=== PATIENT | female | born 1975 | race Caucasian/White ===

== ENCOUNTER → 2024-07-13 | Outpatient (CLI) | payer OTHER, SELFPAY | END | disposition home or self-care (01) | PROVIDERS: PCP Physician Assistant; Referring Provider Physician Assistant; Visit Provider Student in an Organized Health Care Education/Training Program | DX: I87.313 Chronic venous hypertension (idiopathic) with ulcer of bilateral lower extremity (principal); R21 Rash and other nonspecific skin eruption; I10 Essential (primary) hypertension; M79.7 Fibromyalgia; E11.40 Type 2 diabetes mellitus with diabetic neuropathy, unspecified; M35.00 Sjogren syndrome, unspecified; D64.9 Anemia, unspecified | CPT/HCPCS: 99214; G0463 ==

== ENCOUNTER → 2024-07-20 | Outpatient (CLI) | payer OTHER, SELFPAY | END | disposition home or self-care (01) | LOC: SWHD 14:29 | PROVIDERS: PCP Physician Assistant; Referring Provider Physician Assistant; Visit Provider Student in an Organized Health Care Education/Training Program | DX: I87.313 Chronic venous hypertension (idiopathic) with ulcer of bilateral lower extremity (principal); R21 Rash and other nonspecific skin eruption; I10 Essential (primary) hypertension; M79.7 Fibromyalgia; E11.40 Type 2 diabetes mellitus with diabetic neuropathy, unspecified; M35.00 Sjogren syndrome, unspecified; D64.9 Anemia, unspecified | CPT/HCPCS: 99213; G0463 ==

== ENCOUNTER → 2024-11-05 | Outpatient (CLI) | payer OTHER, SELFPAY ==
[2024-11-05 10:12] LABS: Basophils # (Auto) 0.1 Thou/mm3 (0.0-0.2); Basophils % (Auto) 1 % (0-2.5); Eosinophils # (Auto) 0.6 Thou/mm3 (0.0-0.5); Eosinophils % (Auto) 8 % (0-10); Hematocrit 38.2 % (36.0-46.0); Hemoglobin 12.2 g/dL (12.0-16.0); Immature Granulocytes % (Auto) 0 % (0-0); Immature Granulocytes Auto 0.01 Thou/mm3 (0.00-0.00); Lymphocytes # (Auto) 2.4 Thou/mm3 (1.0-4.8); Lymphocytes % (Auto) 34 % (10-50); Mean Corpuscular HGB Conc 31.9 g/dl (31.0-37.0); Mean Corpuscular Hemoglobin 23.7 pg (25.0-35.0); Mean Corpuscular Volume 74 fL (80-100); Monocytes # (Auto) 0.5 Thou/mm3 (0.0-0.8); Monocytes % (Auto) 8 % (0-12); Neutrophils # (Auto) 3.4 Thou/mm3 (1.8-7.7); Neutrophils % (Auto) 49 % (37-80); Nucleated Red Blood Cell % 0 /100 WBC (0); Platelet Count 471 Thou/mm3 (140-440); RDW Standard Deviation 52.2 fL (36.4-46.3); Red Blood Count 5.14 Miln/mm3 (4.00-5.20); White Blood Count 6.9 Thou/mm3 (3.6-11.0)
[2024-11-05 10:42] LABS: Glucose Estimated Average 140 mg/dL (80-131); Hemoglobin A1C 6.5 % Hgb (4.8-6.0)
[2024-11-05 10:52] LABS: Path Review Blood Smear Sent to Pathologist
[2024-11-05 10:54] LABS: Cardiac Risk Estimate 3.8 RATIO (3.7-5.6); Cholesterol 219 mg/dL (132-200); HDL Cholesterol 58 mg/dL (40-60); LDL Cholesterol,Calculated 140 mg/dL (0-130); Triglycerides 106 mg/dL (30-150)
[2024-11-05 10:55] LABS: Ferritin 8 ng/mL (7.3-270.7); Iron 39 mcg/dL (50-170)
== END | disposition home or self-care (01) ==
LOC: COPL 08:30
PROVIDERS: PCP Family Medicine; Referring Provider Physician Assistant; Visit Provider Physician Assistant
DX: I10 Essential (primary) hypertension (principal); E78.5 Hyperlipidemia, unspecified; D50.9 Iron deficiency anemia, unspecified; D75.839 Thrombocytosis, unspecified; E11.65 Type 2 diabetes mellitus with hyperglycemia
CPT/HCPCS: 36415; 80061; 82728; 83036; 83540; 85025

== ENCOUNTER 2025-01-15 10:05 | Day surgery (SDC) | payer OTHER, SELFPAY ==
--- NOTE | 2025-01-14 10:25 | EKG_ITS ---
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
[2025-01-14 11:48] LABS: INR 0.9 (0.9-1.3); Partial Thromboplastin Time 27.1 Seconds (22.0-36.0); Prothrombin Time 10.4 Seconds (9.0-12.2)
[2025-01-14 11:55] LABS: Alanine Aminotransferase 24 U/L (10-49); Albumin, Serum 4.4 gm/dL (3.5-5.0); Albumin/Globulin Ratio 1.7 (1.2-2.2); Alkaline Phosphatase 139 U/L (46-116); Anion Gap 11 (7-16); Aspartate Amino Transferase 26 U/L (0-34); BUN/Creatinine Ratio 10 Ratio (12-20); Bilirubin,Total < 0.2 mg/dL (0.3-1.2); Blood Urea Nitrogen 7 mg/dL (9-23); Calcium 9.2 mg/dL (8.3-10.6); Calcium (Corrected) 9.2 mg/dL (8.5-10.1); Carbon Dioxide 24.9 mMol/L (20.0-31.0); Chloride 101 mMol/L (98-107); Creatinine (Component) 0.7 mg/dL (0.6-1.3); Globulin 2.6 gm/dL (2.3-3.5); Glucose 129 mg/dL (74-106); Osmolality,Calculated 273 (275-295); Potassium 4.2 mMol/L (3.4-5.1); Sodium 137 mMol/L (136-145); eGFR > 60 See Note
[2025-01-14 15:17] VITALS: BMI 28.8
[2025-01-15 10:30] VITALS: BP 165/113; PULSE 95; RESP 20; TEMP 36.3; O2SAT 94; BMI 29.7
[2025-01-15] MEDS: RINGERS LACTATED 500 ML 500 ML 20 ML IV (10:39)
[2025-01-15 11:12] VITALS: BP 147/99; PULSE 87; RESP 20; O2SAT 94
[2025-01-15 12:12] VITALS: BP 141/93; PULSE 97; RESP 24; TEMP 36.1; O2SAT 98
[2025-01-15 12:22] VITALS: BP 138/95; PULSE 80; RESP 18; O2SAT 96
[2025-01-15 12:32] VITALS: BP 158/105; PULSE 87; RESP 19; O2SAT 96
[2025-01-15 12:42] VITALS: BP 146/106; PULSE 82; RESP 16; O2SAT 97
== END 2025-01-15 13:07 | disposition home or self-care (01) ==
PROVIDERS: Anesthesiology; PCP Physician Assistant; Referring Provider Specialist; Visit Provider Specialist
PROC: 0DBE8ZX Excision of Large Intestine, Via Natural or Artificial Opening Endoscopic, Diagnostic (ICD-10-PCS; CPT 45380; principal; 2025-01-15 10:15)
PROC: (CPT 43239; 2025-01-15 10:15)
DX: K64.2 Third degree hemorrhoids (principal); D50.9 Iron deficiency anemia, unspecified; K57.30 Diverticulosis of large intestine without perforation or abscess without bleeding
CPT/HCPCS: 46221; 45378; 36415; 80053; 81025; 85610; 85730; 93005; A4649; C1726; J7120

== ENCOUNTER → 2025-01-22 | Outpatient (CLI) | payer OTHER, SELFPAY ==
[2025-01-22 10:18] LABS: Basophils # (Auto) 0.1 Thou/mm3 (0.0-0.2); Basophils % (Auto) 1 % (0-2.5); Eosinophils # (Auto) 0.4 Thou/mm3 (0.0-0.5); Eosinophils % (Auto) 6 % (0-10); Hematocrit 36.5 % (36.0-46.0); Hemoglobin 12.4 g/dL (12.0-16.0); Immature Granulocytes % (Auto) 0 % (0-0); Immature Granulocytes Auto 0.01 Thou/mm3 (0.00-0.00); Lymphocytes % (Auto) 27 % (10-50); Mean Corpuscular Hemoglobin 25.7 pg (25.0-35.0); Mean Corpuscular Volume 76 fL (80-100); Monocytes # (Auto) 0.6 Thou/mm3 (0.0-0.8); Monocytes % (Auto) 9 % (0-12); Neutrophils # (Auto) 4.2 Thou/mm3 (1.8-7.7); Neutrophils % (Auto) 57 % (37-80); Nucleated Red Blood Cell % 0 /100 WBC (0); Platelet Count 421 Thou/mm3 (140-440); RDW Standard Deviation 47.3 fL (36.4-46.3); Red Blood Count 4.83 Miln/mm3 (4.00-5.20); White Blood Count 7.3 Thou/mm3 (3.6-11.0)
[2025-01-22 10:29] LABS: Glucose Estimated Average 154 mg/dL (80-131)
[2025-01-22 10:32] LABS: Alanine Aminotransferase 16 U/L (10-49); Albumin, Serum 4.6 gm/dL (3.5-5.0); Albumin/Globulin Ratio 1.9 (1.2-2.2); Alkaline Phosphatase 138 U/L (46-116); Anion Gap 9 (7-16); Aspartate Amino Transferase 24 U/L (0-34); BUN/Creatinine Ratio 10 Ratio (12-20); Bilirubin,Total 0.3 mg/dL (0.3-1.2); Blood Urea Nitrogen 7 mg/dL (9-23); Calcium 9.6 mg/dL (8.3-10.6); Calcium (Corrected) 9.6 mg/dL (8.5-10.1); Carbon Dioxide 28.1 mMol/L (20.0-31.0); Cardiac Risk Estimate 4.3 RATIO (3.7-5.6); Chloride 98 mMol/L (98-107); Cholesterol 234 mg/dL (132-200); Creatinine (Component) 0.7 mg/dL (0.6-1.3); Globulin 2.4 gm/dL (2.3-3.5); Glucose 135 mg/dL (74-106); HDL Cholesterol 55 mg/dL (40-60); LDL Cholesterol,Calculated 145 mg/dL (0-130); Magnesium 1.8 mg/dL (1.6-2.6); Osmolality,Calculated 270 (275-295); Potassium 4.4 mMol/L (3.4-5.1); Sodium 135 mMol/L (136-145); Triglycerides 168 mg/dL (30-150); eGFR > 60 See Note
[2025-01-22 10:47] LABS: Ferritin 15 ng/mL (7.3-270.7); Iron 48 mcg/dL (50-170)
[2025-01-22 10:48] LABS: Vitamin B12 502 pg/mL (211-911); Vitamin D 25 Hydroxy Total 23.8 ng/mL (7.3-40.2)
[2025-01-27 07:19] LABS: Vitamin B6, Plasma* 5.2 ng/mL (2.1-21.7)
== END | disposition home or self-care (01) ==
LOC: COPL 09:12
PROVIDERS: PCP Physician Assistant; Referring Provider Psychiatry & Neurology Neurology; Visit Provider Psychiatry & Neurology Neurology
DX: D50.9 Iron deficiency anemia, unspecified (principal); E11.9 Type 2 diabetes mellitus without complications; E78.5 Hyperlipidemia, unspecified; F41.1 Generalized anxiety disorder; G40.89 Other seizures; I10 Essential (primary) hypertension; R53.83 Other fatigue
CPT/HCPCS: 36415; 80053; 80061; 82306; 82607; 82728; 83036; 83540; 83735; 84207; 85025

== ENCOUNTER → 2025-04-26 | Outpatient (CLI) | payer OTHER, SELFPAY ==
[2025-04-26 08:46] LABS: Glucose Estimated Average 192 mg/dL (80-131); Hemoglobin A1C 8.3 % Hgb (4.8-6.0)
[2025-04-26 08:55] LABS: Alanine Aminotransferase 29 U/L (10-49); Albumin, Serum 4.6 gm/dL (3.5-5.0); Albumin/Globulin Ratio 1.6 (1.2-2.2); Alkaline Phosphatase 174 U/L (46-116); Anion Gap 12 (7-16); Aspartate Amino Transferase 27 U/L (0-34); BUN/Creatinine Ratio 13 Ratio (12-20); Bilirubin,Total 0.3 mg/dL (0.3-1.2); Blood Urea Nitrogen 9 mg/dL (9-23); Calcium 10.0 mg/dL (8.3-10.6); Calcium (Corrected) 10.0 mg/dL (8.5-10.1); Carbon Dioxide 25.4 mMol/L (20.0-31.0); Cardiac Risk Estimate 4.5 RATIO (3.7-5.6); Chloride 94 mMol/L (98-107); Cholesterol 228 mg/dL (132-200); Creatinine (Component) 0.7 mg/dL (0.6-1.3); Globulin 2.9 gm/dL (2.3-3.5); Glucose 140 mg/dL (74-106); HDL Cholesterol 51 mg/dL (40-60); LDL Cholesterol,Calculated 138 mg/dL (0-130); Osmolality,Calculated 263 (275-295); Potassium 4.0 mMol/L (3.4-5.1); Sodium 131 mMol/L (136-145); Total Protein 7.5 gm/dL (5.7-8.2); Triglycerides 197 mg/dL (30-150); eGFR > 60 See Note
== END | disposition home or self-care (01) ==
LOC: COPL 07:48
PROVIDERS: PCP Physician Assistant; Referring Provider Physician Assistant; Visit Provider Physician Assistant
DX: I10 Essential (primary) hypertension (principal); E78.5 Hyperlipidemia, unspecified; E11.9 Type 2 diabetes mellitus without complications
CPT/HCPCS: 36415; 80053; 80061; 83036

== ENCOUNTER 2025-07-19 10:19 | Emergency (ER) | payer OTHER, SELFPAY ==
[2025-07-19 10:20] VITALS: BMI 31.1
[2025-07-19 10:34] VITALS: BP 186/100; PULSE 199; RESP 18; TEMP 36.7; O2SAT 98
--- NOTE | 2025-07-19 10:51 | XR_ITS ---
Examination: CT brain head without contrast. 2-D sagittal coronal reconstructions Date and time of exam: July 19, 2025, 1059 hours, comparison February 20, 2024 INDICATIONS: Altered mental status today CTDI: vol (mGy): 49.6 DLP: (mGycm): 927 Technique: Multiple CT axial sections of the brain have been obtained, 5 mm slice thickness. Contrast has not been administered. 2-D sagittal, coronal reconstructions have been obtained Low dose protocols were performed. One or more of the following dose reduction techniques were used; automated exposure control, adjustment of the mA and/or KV according to patient size, use of iterative reconstruction technique. Findings: No significant ventricular enlargement. Intra-axial or extra-axial hemorrhage density is not seen. No mass effect or midline shift Basal cisterns are not remarkable. Fourth ventricle is midline. Cranial vault intact. Impression: Negative for acute hemorrhage, mass effect or midline shift Advise clinical correlation and follow-up accordingly
--- NOTE | 2025-07-19 10:52 | EKG_ITS ---
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
--- NOTE | 2025-07-19 10:52 | XR_ITS ---
EXAMINATION: AP chest single view TECHNIQUE: AP portable sitting chest single view Date and time: 2024, 1253 hours, comparison February 21, 2024 INDICATIONS: Onset chest pain today. FINDINGS: Normal heart size Mild elevation right hemidiaphragm. No pneumonia or pulmonary edema. Prominent osteopenia IMPRESSION: No pneumonia or pulmonary edema
--- NOTE | 2025-07-19 10:52 | PD.EDRME ---
Rapid Medical Screening Exam RME Arrival date/time: 07/19/25 10:19 50-year-old female with a history of CVA, presents to the emergency room with a chief complaint of altered mental status. Per family member the patient has not been eating and no sleep but acting appropriately I have greeted and performed a focused initial assessment of this patient. A comprehensive ED assessment and evaluation of the patient, analysis of all test results, and completion of the medical decision making process will be conducted by additional ED providers. Chief Complaint: Chest Pain Time Seen by Provider: 07/19/25 10:28 Vital signs: Vital Signs Temperature 98.0 F 07/19/25 10:34 Pulse Rate 199 H 07/19/25 10:34 Respiratory Rate 18 07/19/25 10:34 Pulse Oximetry (%) 98 07/19/25 10:34 Oxygen Delivery Method Room Air 07/19/25 10:34 Vital signs reviewed by provider: Yes Exam: Clear bilateral lung sounds Strong and regular rhythm Clinical Impression: Altered mental status/insomnia/electrolyte imbalance
[2025-07-19 11:11] VITALS: BP 109/91; PULSE 188
[2025-07-19] MEDS: ADENOSINE INJ 3 MG/ML VIAL 6 MG IVP (11:11)
[2025-07-19 11:13] VITALS: PULSE 119
--- NOTE | 2025-07-19 11:13 | PD.EDCHEST ---
ED Chest Pain RME/HPI General Chief Complaint: Chest Pain Stated Complaint: chest pain Time Seen by Provider: 07/19/25 10:28 Arrival date/time: 07/19/25 10:19 RME / HPI RME / HPI narrative: 07/19/25 10:19 50-year-old female with a history of CVA, presents to the emergency room with a chief complaint of altered mental status. Per family member the patient has not been eating and no sleep but acting appropriately I have greeted and performed a focused initial assessment of this patient. A comprehensive ED assessment and evaluation of the patient, analysis of all test results, and completion of the medical decision making process will be conducted by additional ED providers. DR. ROMERO MAIN ED EVALUATION 50 year old female with history of hypertension,SVT, prior ablation, fibromyalgia, diabetes presents to the ED for evaluation of chest pain beginning this morning. Accompanied by palpitations and feeling light headed. Reportedly had experienced SVT in the past and states her symptoms today are similar to prior episodes. No other associated symptoms reported. Exam: Clear bilateral lung sounds Strong and regular rhythm Impression: Altered mental status/insomnia/electrolyte imbalance Related Data Home Medications ?Medication ?Instructions ?Recorded ?Confirmed amitriptyline 100 mg tablet 100 mg PO HS 02/20/24 01/15/25 oxcarbazepine 300 mg tablet 300 mg PO HS 02/20/24 01/15/25 ketorolac 10 mg tablet 10 mg PO [id number] 01/15/25 01/15/25 metoprolol succinate 25 mg 25 mg PO Q12H 01/15/25 01/15/25 tablet,extended release 24 hr triamcinolone acetonide 0.1 % applic topical PRN 01/15/25 topical cream Previous Rx's ?Medication ?Instructions ?Recorded clonazepam 0.5 mg tablet 0.5 mg PO HS PRN Anxiety 5 days #5 02/22/24 Held on 01/15/25. tabs Instructions: Resume on 01/16/25. blood sugar diagnostic (Blood #50 ea 02/23/24 Glucose Test strips) blood-glucose meter #1 ea 02/23/24 blood-glucose sensor (FreeStyle #1 ea 02/23/24 Fabienne 3 Sensor device) Allergies Allergy/AdvReac Type Severity Reaction Status Date / Time clindamycin Allergy Severe Vomiting Verified 07/19/25 10:22 codeine Allergy Severe Palpitation Verified 07/19/25 10:22 s hydrocodone Allergy Severe Palpitation Verified 07/19/25 10:22 s pseudoephedrine Allergy Severe Palpitation Verified 07/19/25 10:22 s Sulfa (Sulfonamide Allergy Unknown Verified 07/19/25 10:22 Antibiotics) Review of Systems Review of Systems Systems Reviewed: All systems reviewed, normal except as documented Past Medical History Past Medical History NEUROLOGIC: Positive Neurological Disorders, Seizures and Peripheral Neuropathy CARDIAC: Positive Cardiac Disorders (SVT), Hypercholesterolemia and Hypertension GASTROINTESTINAL: Positive Gastrointestinal Disorders (fatty liver), Hiatal Hernia and Gastroesophageal Reflux Disease REPRODUCTIVE: Positive Previous Pregnancies MUSCULOSKELETAL: Positive Musculoskeletal Disorders and Fibromyalgia ENDOCRINE: Positive Endocrine Disorders (Thyroid nodules), Diabetes Mellitus Type 2 (Diet controlled) and Hypothyroidism HEMATOLOGIC: Positive Blood Disorders and Anemia (iron deficiency) PSYCHO/SOCIAL: Positive Psychiatric Problems, Schizophrenia, Bipolar Disorder, Depression and Anxiety OTHER HISTORY: Positive Falls Surgical History SURGICAL: Positive Hysterectomy Social History SMOKING STATUS: Never smoker SECOND HAND EXPOSURE: No SUBSTANCE USE: other (States she uses cannabis oil PRN for fibromyalgia pain. ) ED Exam Narrative Physical exam: GENERAL APPEARANCE: alert and oriented x 4, well-developed, well-nourished HEENT: Normocephalic, atraumatic; pupils equal, round, reactive to light; EOMI; mucous membranes pink, moist; oropharynx clear NECK: Supple LUNGS: CTABL; no wheezes, no rales, no rhonchi HEART: SVT 190s on telemetry; normal S1, S2; no murmurs ABDOMEN: non distended; normal BS; soft, no tenderness, no guarding, no rebound; no masses, no organomegaly, no hernia EXTREMITIES: atraumatic; no edema NEUROLOGIC: awake; alert and oriented x4; cranial nerves II-XII grossly intact; no focal sensory or motor deficits PSYCHIATRIC: appropriate mood and affect SKIN: warm, dry, normal color; no rashes Course Quality Measures none Orders Category Date Time Status EKG (ED ONLY) *Do not use* NOW Care 07/19/25 10:[address] head/brain wo con Stat Exams 07/19/25 10:51 Completed EKG (ED Only) Stat Exams 07/19/25 10:52 Draft XR chest 1V portable Stat Exams 07/19/25 10:52 Ordered B-Type Natriuretic Peptide Stat Lab 07/19/25 11:14 Completed CBC Stat Lab 07/19/25 11:14 Completed Comprehensive Metabolic Panel Stat Lab 07/19/25 11:14 Completed Drug Screen,Urine Stat Lab 07/19/25 10:52 Ordered Free T4 (Free Thyroxine) Stat Lab 07/19/25 11:14 Completed Magnesium Stat Lab 07/19/25 11:14 Completed Partial Thromboplastin Time Stat Lab 07/19/25 11:14 Completed Prothrombin Time with INR Stat Lab 07/19/25 11:14 Completed TSH [Thyroid Stimulating Hormone] Stat Lab 07/19/25 11:14 Completed Troponin I Stat Lab 07/19/25 11:14 Completed Urinalysis, C/S if Indicated Stat Lab 07/19/25 10:52 Ordered Adenosine 6mg Inj [Adenocard Inj] Med 07/19/25 11:03 Discontinued 12 mg .ROUTE .STK-MED ONE Adenosine 6mg Inj [Adenocard Inj] Med 07/19/25 11:08 Discontinued 12 mg IVP X1 ONE Adenosine 6mg Inj [Adenocard Inj] Med 07/19/25 11:03 Discontinued 6 mg .ROUTE .STK-MED ONE Adenosine 6mg Inj [Adenocard Inj] Med 07/19/25 11:08 Discontinued 6 mg IVP X1 ONE Aspirin Chew Med 07/19/25 12:36 Discontinued 324 mg PO X1 ONE Sodium Chloride 0.9% 1000 ml [Ns] 1,000 ml Med 07/19/25 11:12 Discontinued IV 999 mls/hr Vital Signs Vital signs: Vital Signs Temperature 98.0 F 07/19/25 10:34 Pulse Rate 199 H 07/19/25 10:34 Respiratory Rate 18 07/19/25 10:34 Blood Pressure 186/100 H 07/19/25 10:34 Pulse Oximetry (%) 98 07/19/25 10:34 Oxygen Delivery Method Room Air 07/19/25 10:34 Chest Pain MDM Narrative MDM Narrative:: I, Tonia Alvarenga am scribing for and in the presence of Dr. Romero. 1111a: HR 190s, SVT on telemetry. Given 6mg Adenosine and converted to sinus tachycardia HR 120s. 1250p: I spoke with patients crisis intervention counselor Dr. Johnson. Discussed patients PMHx, HPI, ED course, exam findings, labs, and radiology results. Advised sending the patient home and will follow up with her in office. Patient data External records reviewed:: [facility] previous records Clinical information provided by:: patient Social determinants that could affect healthcare access:: none Patient has the following chronic illnesses:: hypertension,SVT, prior ablation, fibromyalgia, diabetes How is presenting disease/condition affected by chronic disease/condition?: exacerbated by Evaluation data The following diagnostics were reviewed and interpreted by me:: lab results, radiology exam(s) and EKG tracing(s) (EKG @ 11:09 AM, SVT, rate 188, no STEMI. EKG #2 @ 11:12 AM, sinus tachycardia, rate 123, no STEMI. ) Lab and/or radiology exams considered but not ordered:: None Interpretation Summary: Ordering Physician: Alonzo Duran Date of Service: 07/19/25 Procedure(s): CT head/brain wo con Accession Number(s): [id number] cc: Alonzo Duran; Brent Quintero MD~ Examination: CT brain head without contrast. 2-D sagittal coronal reconstructions Date and time of exam: July 19, 2025, 1059 hours, comparison February 20, 2024 INDICATIONS: Altered mental status today CTDI: vol (mGy): 49.6 DLP: (mGycm): 927 Technique: Multiple CT axial sections of the brain have been obtained, 5 mm slice thickness. Contrast has not been administered. 2-D sagittal, coronal reconstructions have been obtained Low dose protocols were performed. One or more of the following dose reduction techniques were used; automated exposure control, adjustment of the mA and/or KV according to patient size, use of iterative reconstruction technique. Findings: No significant ventricular enlargement. Intra-axial or extra-axial hemorrhage density is not seen. No mass effect or midline shift Basal cisterns are not remarkable. Fourth ventricle is midline. Cranial vault intact. Impression: Negative for acute hemorrhage, mass effect or midline shift Advise clinical correlation and follow-up accordingly Dictated By: Brent Quintero MD Signed By: <Electronically signed by Brent Quintero MD in OV> 07/19/25 1120 Medications / Prescriptions Medications or Prescriptions considered but not ordered:: none Medication administrations:: Medication Administration History Discontinued Medications Adenosine (Adenosine Inj 3 Mg/Ml Vial) Confirm Administered Dose 6 mg .ROUTE .STK-MED ONE Stop: 07/19/25 11:04 Last Admin: 07/19/25 11:12 Dose: Not Given Documented By: EF Non-Admin Reason: Override Medication Adenosine (Adenosine Inj 3 Mg/Ml Vial) Confirm Administered Dose 12 mg .ROUTE .STK-MED ONE Stop: 07/19/25 11:04 Last Admin: 07/19/25 11:12 Dose: Not Given Documented By: EF Non-Admin Reason: Override Medication Adenosine (Adenosine Inj 3 Mg/Ml Vial) 6 mg IVP X1 ONE Stop: 07/19/25 11:09 Last Admin: 07/19/25 11:11 Dose: 6 mg Documented By: EF Adenosine (Adenosine Inj 3 Mg/Ml Vial) 12 mg IVP X1 ONE Stop: 07/19/25 11:09 Last Admin: 07/19/25 11:30 Dose: Not Given Documented By: EF Non-Admin Reason: Change of Condition Aspirin (Aspirin 81 Mg Chew) 324 mg PO X1 ONE Stop: 07/19/25 12:37 Last Admin: 07/19/25 12:46 Dose: 324 mg Documented By: EF Sodium Chloride (Ns) 1,000 mls @ 999 mls/hr IV .Q1H1M ONE Stop: 07/19/25 12:12 Last Infusion: 07/19/25 12:21 Dose: Infused Documented By: Admin: 07/19/25 11:20 Dose: 999 mls/hr Documented By: EF See above Consultations Consultation(s) initiated? (list below): Yes Consultation #1 (Physician, Specialty, Details): See MDM Diagnosis Most likely diagnosis given after review of the tests above:: Elevated troponin SVT Admission Indicated Admission indicated?: not indicated Admission Request Was there a request for admission?: No Disposition Plan Disposition Plan: Discharge Discharge Attestation Discharge Attestation: The patient and all family members were given an opportunity to ask questions and understood the discharge instructions. Discharge instructions specifically effects, indications for sooner follow up or return to the emergency department, and the expected course of current diagnosis. Patient condition: Stable Discharge Plan Plan Patient Disposition: HOME (Self Care) Prescriptions/Referrals Prescriptions/Med Rec: No Action ketorolac 10 mg tablet 10 mg PO [id number] Patient Comments: TAKE 1 TABLET BY MOUTH EVERY 6 HOURS WITH FOOD OR MILK NEEDED FOR 5 DAYS metoprolol succinate 25 mg tablet extended release 24 hr 25 mg PO Q12H Patient Comments: TAKE 1 TABLET BY MOUTH EVERY DAY FOR 90 DAYS triamcinolone acetonide 0.1 % cream TOPICAL PRN Patient Comments: APPLY EXTERNALLY TWO TIMES PER DAY NEEDED 10 DAYS oxcarbazepine 300 mg tablet 300 mg PO HS Patient Comments: TAKE 1 TABLET BY MOUTH EVERYDAY AT BEDTIME amitriptyline 100 mg tablet 100 mg PO HS Patient Comments: TAKE 1 TABLET BY MOUTH EVERYDAY AT BEDTIME clonazepam 0.5 MG tablet 0.5 mg PO HS PRN (Reason: Anxiety) 5 Days Qty: 5 0RF Rx Instructions: Every night Last dose taken october or november 2023. (DME) blood-glucose meter Kit See Rx Instructions .Route Qty: 1 0RF Rx Instructions: As directed (DME) Blood Glucose Test Strip See Rx Instructions .Route Qty: 50 0RF Rx Instructions: As directed (DME) FreeStyle Fabienne 3 Sensor Device See Rx Instructions .Route Qty: 1 0RF Rx Instructions: As directed Referrals: Corby Johnson MD [Physician, Cardiology] Problem List Clinical Impression: Elevated troponin, SVT (supraventricular tachycardia) Patient/Caregiver Discharge Instructions Education Materials: Supraventricular Tachycardia Additional Instructions: Follow up with Dr. Johnson this week. Call office for appointment. Print Language: Icelandic Stand Alone Forms: [employer] Award Info., Patient Portal Info Letter
[2025-07-19] MEDS: SODIUM CHLORIDE 0.9% 1000 ML 1,000 ML 999 ML IV (11:20)
[2025-07-19 11:38] LABS: Basophils # (Auto) 0.1 Thou/mm3 (0.0-0.2); Basophils % (Auto) 1 % (0-2.5); Eosinophils # (Auto) 0.0 Thou/mm3 (0.0-0.5); Eosinophils % (Auto) 0 % (0-10); Hematocrit 44.3 % (36.0-46.0); Hemoglobin 14.1 g/dL (12.0-16.0); Immature Granulocytes Auto 0.06 Thou/mm3 (0.00-0.00); Lymphocytes # (Auto) 2.4 Thou/mm3 (1.0-4.8); Lymphocytes % (Auto) 17 % (10-50); Mean Corpuscular HGB Conc 31.8 g/dl (31.0-37.0); Mean Corpuscular Hemoglobin 24.9 pg (25.0-35.0); Mean Corpuscular Volume 78 fL (80-100); Monocytes # (Auto) 0.9 Thou/mm3 (0.0-0.8); Monocytes % (Auto) 7 % (0-12); Neutrophils # (Auto) 10.7 Thou/mm3 (1.8-7.7); Neutrophils % (Auto) 75 % (37-80); Nucleated Red Blood Cell # 0.00 Thou/mm3 (0.00-0.00); Nucleated Red Blood Cell % 0 /100 WBC (0); Platelet Count 573 Thou/mm3 (140-440); RDW Standard Deviation 53.0 fL (36.4-46.3); Red Blood Count 5.67 Miln/mm3 (4.00-5.20); White Blood Count 14.2 Thou/mm3 (3.6-11.0)
[2025-07-19 11:52] LABS: INR 1.1 (0.9-1.3); Partial Thromboplastin Time 29.3 Seconds (22.0-36.0); Prothrombin Time 11.2 Seconds (9.0-12.2)
[2025-07-19 11:59] LABS: Alanine Aminotransferase 34 U/L (10-49); Albumin, Serum 5.4 gm/dL (3.5-5.0); Albumin/Globulin Ratio 1.7 (1.2-2.2); Alkaline Phosphatase 164 U/L (46-116); Anion Gap 20 (7-16); Aspartate Amino Transferase 41 U/L (0-34); BUN/Creatinine Ratio 9 Ratio (12-20); Bilirubin,Total 0.5 mg/dL (0.3-1.2); Blood Urea Nitrogen 12 mg/dL (9-23); Calcium 9.8 mg/dL (8.3-10.6); Calcium (Corrected) 9.8 mg/dL (8.5-10.1); Carbon Dioxide 19.0 mMol/L (20.0-31.0); Chloride 102 mMol/L (98-107); Creatinine (Component) 1.3 mg/dL (0.6-1.3); Estimated Creatinine Clearance 61.0 mL/min (>60); Free T4 (Free Thyroxine) 1.33 ng/dL (0.89-1.76); Globulin 3.1 gm/dL (2.3-3.5); Glucose 205 mg/dL (74-106); Magnesium 2.1 mg/dL (1.6-2.6); Osmolality,Calculated 286 (275-295); Potassium 3.7 mMol/L (3.4-5.1); Sodium 141 mMol/L (136-145); Thyroid Stimulating Hormone 2.03 uIU/mL (0.55-4.78); Total Protein 8.5 gm/dL (5.7-8.2); eGFR 50 See Note
[2025-07-19 12:09] LABS: B-Type Natriuretic Peptide 104 pg/mL (0-100)
[2025-07-19 12:14] LABS: Troponin I 0.199 ng/mL (0.0-0.045)
[2025-07-19] MEDS: ASPIRIN 81 MG CHEW 324 MG PO (12:46)
[2025-07-19 13:13] VITALS: BP 149/104; PULSE 107; RESP 15; O2SAT 96
[2025-07-19 13:15] LABS: Collection Type, Urine Clean Catch
[2025-07-19 13:29] LABS: Amphetamine/Methamp Scrn,U Negative (Negative); Barbiturate Screen,Urine Negative (Negative); Benzodiazepines Screen,Urine Negative (Negative); Benzoylecgonine Screen, Ur Negative (Negative); Fentanyl Screen,Urine Negative (Negative); Opiate Screen,Urine Negative (Negative); THC Screen,Urine Negative (Negative)
[2025-07-19 13:56] LABS: Bacteria,Urine 2+; Bilirubin,Urine Negative (Negative); Blood,Urine Negative (Negative); Color,Urine Lt-Yellow (Lt Yel-Yel); Glucose, Urine Negative (Negative); Granular Casts,Urine 1 /hpf (0-1); Hyaline Casts,Urine < 1 /hpf (0-1); Ketones,Urine 1+ (Negative); Leukocyte Esterase,Urine Positive (Negative); Nitrite,Urine Negative (Negative); PH,Urine 6.0 (5.0-7.0); Protein,Urine Trace (Neg - Trace); RBC,Urine 5 /hpf (0-3); Specific Gravity,Urine 1.007 (1.001-1.035); Squamous Epithelial Cell,Urine 3 /hpf (0-5); Urobilinogen,Urine Negative mg/dL (0.0-1.0); WBC,Urine 10 /hpf (0-5)
[2025-07-19 13:58] LABS: Clarity,Urine Hazy (Clear/Hazy); Culture Indicated,Urine Yes
== END 2025-07-19 13:21 | disposition home or self-care (01) ==
LOC: SERX 13:30
PROVIDERS: Nurse Practitioner Family; Emergency Provider Emergency Medicine
DX: I47.10 Supraventricular tachycardia, unspecified (principal); R79.89 Other specified abnormal findings of blood chemistry; R41.82 Altered mental status, unspecified; R07.9 Chest pain, unspecified; I10 Essential (primary) hypertension; E78.00 Pure hypercholesterolemia, unspecified
CPT/HCPCS: 36415; 70450; 71045; 80053; 80307; 81001; 83735; 83880; 84439; 84443; 84484; 85025; 85610; 85730; 87086; 93005; 96361; 96374; 99284; J0153; J7030; A9270

== ENCOUNTER 2025-08-02 08:15 | Day surgery (SDC) | payer OTHER, SELFPAY ==
[2025-07-30 15:56] VITALS: BMI 30.5
[2025-08-02] VITALS (10 sets, daily range): BP systolic 120–167; BP diastolic 70–120; PULSE 75–96; RESP 12–21; TEMP 36.5–36.7; O2SAT 94–100; BMI 30.2
--- NOTE | 2025-08-02 08:30 | SUR.PREOP ---
PER PATIENT SHE HAS BEEN CLEARED FOR PROCEDURE FROM . 'S OFFICE CONTACTED, FAX REQUESTED OF CLEARANCE AND RECENT PHYSICIAN'S NOTE.
--- NOTE | 2025-08-02 09:55 | SUR.PREOP ---
YANIQUE INFECTION GLOBAL MANAGER AT BEDSIDE DISCUSSING WITH PATIENT HER ROLE HERE AT [facility] AND ASKS PATIENT IF SHE CONSENTS TO HAVE HER IN THE OR ROOM DURING THE PROCEDURE TO OBSERVE STAFF. PATIENT AGREES AND GIVES YANIQUE A VERBAL CONSENT.
[2025-08-02] MEDS: SODIUM CHLORIDE 0.9% 500 ML 500 ML 20 ML IV (10:35)
[2025-08-02] MEDS: BENZOCAINE 20% (Hurricaine) SPRAY 1 DOSE TOP (10:44)
[2025-08-02] MEDS: MIDAZOLAM INJ 1 MG/ML VIAL 2 ML (ASD USE ONLY) 2 MG IVP (10:48)
[2025-08-02] MEDS: fentaNYL CIT INJ 50 mCg/ML AMP 2ML (ASD USE ONLY) IVP (10:48)
== END 2025-08-02 11:45 | disposition home or self-care (01) ==
PROVIDERS: PCP Physician Assistant; Referring Provider Specialist; Visit Provider Specialist
PROC: (CPT 43239; principal; 2025-08-02 11:45)
DX: K22.2 Esophageal obstruction (principal); K29.70 Gastritis, unspecified, without bleeding; K44.9 Diaphragmatic hernia without obstruction or gangrene
CPT/HCPCS: 43249; 43248; 81025; A4649; C1726; C1769; J1200; J2250; J3010; J7999; A9270